=== PATIENT | female | born 1965 | race Caucasian/White ===

== ENCOUNTER 2017-01-28 20:23 | Emergency (ER) | payer BC, MEDICAID ==
[~2017-01-28] VITALS: Ht 162.6 cm; Wt 49.1 kg
[~2017-01-28 20:23] MED LIST: IBUP600T26 PO; PRIL10CA PO
[2017-01-28 20:24] VITALS: BP 128/63; PULSE 76; RESP 18; TEMP 98.3; O2SAT 100
[2017-01-28 20:40] VITALS: BP_SYST 104; BP_SYST 108; BP_SYST 119; BP_DIAS 58; BP_DIAS 73; RESP 18
[2017-01-28 21:50] VITALS: BP 110/62; PULSE 60; RESP 16; O2SAT 100
[2017-01-28] MEDS ORDERED: SODIUM CHLOR 0.9% 1000 ML INJ 1,000 ML IV ONE (21:51)
[2017-01-28] MEDS ORDERED: SODIUM CHLORIDE 0.9% FLUSH 10 ML FLUSH IVF PRN (22:00)
--- NOTE | 2017-01-28 22:31 | RADRPT ---
EXAM DATE/TIME: 01/28/2017 22:10 [place] COMPARISON: No previous studies available for comparison. INDICATIONS : Intermittent dizziness for three months. RADIATION DOSE: 57.16 CTDIvol (mGy) MEDICAL HISTORY : None SURGICAL HISTORY : None. ENCOUNTER: Initial ACUITY: 3 months PAIN SCALE: 0/10 LOCATION: Bilateral cranial TECHNIQUE: Multiple contiguous axial images were obtained of the head. Using automated exposure control and adj ustment of the mA and/or kV according to patient size, radiation dose was kept as low as reasonably a chievable to obtain optimal diagnostic quality images. DICOM format image data is available electro nically for review and comparison. FINDINGS: CEREBRUM: The ventricles are normal for age. No evidence of midline shift, mass lesion, hemorrhage or acute in farction. No extra-axial fluid collections are seen. POSTERIOR FOSSA: The cerebellum and brainstem are intact. The 4th ventricle is midline. The cerebellopontine angle i s unremarkable. EXTRACRANIAL: The visualized portion of the orbits is intact. SKULL: The calvaria is intact. No evidence of skull fracture. CONCLUSION: No acute disease. Jacinto Hardy MD on January 28, 2017 at 22:28 Board Certified Radiologist. This report was verified electronically.
[2017-01-28 22:47] LABS: BASOPHIL # 0.1 TH/MM3 (0-0.2); BASOPHIL % 0.9 % (0.0-2.0); EOSINOPHIL # 0.3 TH/MM3 (0-0.4); EOSINOPHIL % 1.9 % (0.0-4.0); HEMATOCRIT 43.6 % (35.0-46.0); LYMPHOCYTE # 3.1 TH/MM3 (1.0-4.8); MEAN CELL VOLUME 89.9 FL (80.0-100.0); MEAN CORPUSCULAR HEMOGLOBIN 29.2 PG (27.0-34.0); MEAN CORPUSCULAR HGB CONC 32.5 % (32.0-36.0); MONO % 6.2 % (0.0-8.0); PLATELET COUNT 279 TH/MM3 (150-450); RED BLOOD COUNT 4.85 MIL/MM3 (4.00-5.30); RED CELL DISTRIBUTION WIDTH 13.5 % (11.6-17.2); WHITE BLOOD COUNT 13.3 TH/MM3 (4.0-11.0)
[2017-01-28 22:48] LABS: BLOOD, URINE NEG (NEG); GLUCOSE,URINE NEG (NEG); HEMO FLAGS DIFF FINAL; KETONE, URINE NEG (NEG); NITRITE,URINE NEG (NEG)
[2017-01-28 22:58] LABS: CHLORIDE 107 MEQ/L (98-107); POTASSIUM 4.2 MEQ/L (3.5-5.1); SODIUM (NA) 140 MEQ/L (136-145)
[2017-01-28] MEDS ORDERED: RESP: RACEPINEPHRINE 2.25% 0.5 ML NEB NEB ONE (23:00)
[2017-01-28 23:01] LABS: ANION GAP 4 MEQ/L (5-15); MAGNESIUM 2.2 MG/DL (1.5-2.5)
[2017-01-28 23:02] VITALS: BP 105/65; PULSE 62; RESP 17; O2SAT 100
[2017-01-28 23:02] LABS: BLOOD UREA NITROGEN 8 MG/DL (7-18)
--- NOTE | 2017-01-28 23:02 | PD ---
HPI Chief Complaint: Syncope/Near-Syncope Time Seen by Provider: 21:51 Travel History International Travel<30 days: No Contact w/Intl Traveler<30days: No Traveled to known affect area: No History of Present Illness HPI 51-year-old female presents to the emergency department by private transportation for evaluation of 3 months of intermittent dizziness. Patient is unable to identify specific tests episodes of dizziness. Patient reportedly was seen in urgent care the past one to 2 months and prescribed meclizine without symptomatic relief. Patient does not complain of headache did have one episode of brief visual disturbance without recurrence has had no injury or fall and denies near-syncope or syncope. Patient has had no chest pain palpitations shortness of breath sweats nausea vomiting or new upper or lower extremity numbness tingling or weakness or ataxia gait. Patient notes that when she stands for protracted amount of time she starts to become lightheaded. Patient takes no routine medications. Patient does not report any recent long distance travel. Patient has no pleuritic chest pain. No report of lower extremity pain or swelling. No recent antibiotic use. No report of fever or chills. History of environmental or seasonal allergies or recurrent sinusitis. [facility], [facility] Past Medical History Narrative Medical Bipolar disorder anxiety depression GERD and tubal ligation alcohol use marijuana use previous cocaine use; nursing notes. Bipolar Disorder: Yes Anxiety: Yes Depression: Yes Heart Rhythm Problems: No Cardiac Catheterization: No Cardiovascular Problems: No High Cholesterol: No Congestive Heart Failure: No Diabetes: No Diminished Hearing: No GERD: Yes ?: Not LMP: MONTHS Past Surgical History Section: Yes (x3) Coronary Artery Bypass Graft: No Gynecologic Surgery: Yes (TUBAL, 3 C-SECTIONS ) Social History Alcohol Use: Yes (Dinner twice a month, might have two drinks with dinner.) Tobacco Use: No Substance Use: Yes (Alcohol in the past, Cocaine tried a few times, Speed in H/ S; Pot lately.) Allergies-Medications (Allergen,Severity, Reaction): Coded Allergies: Iodine (Verified Allergy, Severe, 'THROAT CLOSES UP', 01/28/17) Penicillin (Verified Allergy, Severe, SOB, 01/28/17) Reported Meds & Prescriptions Reported Meds & Active Scripts Active Reported Ibuprofen 600 Mg Tab 600 Mg PO Q8HPRN Prilosec (Omeprazole) 10 Mg Cap 10 Mg PO DAILY Review of Systems Except as stated in HPI: all other systems reviewed are Neg General / Constitutional: No: Fever, Chills, Weight Gain, Weight Loss Eyes: No: Diploplia, Blurred Vision, Photophobia HENT: Positive: Vertigo, Lightheadedness, No: Headaches, Congestion, Neck Stiffness, Neck Pain Cardiovascular: No: Chest Pain or Discomfort, Palpitations, Diaphoresis, Syncope, Dyspnea on exertion, Edema Respiratory: No: Cough, Shortness of Breath, Wheezing Gastrointestinal: No: Nausea, Vomiting, Abdominal Pain Genitourinary: No: Dysuria, Flank Pain Musculoskeletal: No: Myalgias, Arthralgias, Cramping, Edema Skin: No Rash Neurologic: Positive: Dizziness, No: Weakness, Syncope, Focal Abnormalities, Coordination Problem, Ataxia, Headache, Change in Mentation, Slurred Speech, Paresthesia, Seizures Psychiatric: No: Anxiety Endocrine: No: Heat Intolerance Hematologic/Lymphatic: No: Easy Bruising Physical Exam Narrative GENERAL: Well-developed well-nourished female in no acute distress no respiratory distress SKIN: Warm and dry. HEAD: Atraumatic. Normocephalic. EYES: Pupils equal and round. No scleral icterus. No injection or drainage. ENT: No nasal bleeding or discharge. Mucous membranes pink and moist. Tympanic membranes no redness no dullness or loss of landmarks no hemotympanum or perforation. NECK: Trachea midline. No JVD. Supple no nuchal rigidity no meningismus. CARDIOVASCULAR: Regular rate and rhythm. RESPIRATORY: No accessory muscle use. Clear to auscultation. Breath sounds equal bilaterally. GASTROINTESTINAL: Abdomen soft, non-tender, nondistended. Hepatic and splenic margins not palpable. MUSCULOSKELETAL: Extremities without clubbing, cyanosis, or edema. No obvious deformities. NEUROLOGICAL: Awake and alert. No obvious cranial nerve deficits. Motor grossly within normal limits. Five out of 5 muscle strength in the arms and legs. Sensory exam intact. DTRs 2+ and equal bilateral upper extremity or lower extremities without clonus. No limb ataxia. No pronator drift. Normal speech. PSYCHIATRIC: Appropriate mood and affect; insight and judgment normal. Data Data Last Documented VS Vital Signs Date Time Temp Pulse Resp B/P Pulse Ox O2 Delivery O2 Flow Rate FiO2 01/29/17 00:05 98.0 58 17 106/60 99 Room Air Orders Electrocardiogram (01/28/17 21:51) Complete Blood Count With Diff (01/28/17 21:51) Comprehensive Metabolic Panel (01/28/17 21:51) Magnesium (Mg) (01/28/17 21:51) Ckmb (Isoenzyme) Profile (01/28/17 21:51) Troponin I (01/28/17 21:51) Act Partial Throm Time (Ptt) (01/28/17 21:51) Prothrombin Time / Inr (Pt) (01/28/17 21:51) Urinalysis - C+S If Indicated (01/28/17 21:51) Ct Brain W/O Iv Contrast(Rout) (01/28/17 21:51) Ecg Monitoring (01/28/17 21:51) Iv Access Insert/Monitor (01/28/17:51) Oximetry (01/28/17 21:51) Sodium Chloride 0.9% Flush (Ns Flush) (01/28/17 22:00) Sodium Chlor 0.9% 1000 Ml Inj (Ns 1000 M (01/28/17 21:51) Orthostatic Vital Signs (01/28/17 21:51) Racemic Epinephrine 2.25% Neb (Racepinep (01/28/17 23:00) Labs Laboratory Tests Test 01/28/17 22:13 White Blood Count 13.3 TH/MM3 Red Blood Count 4.85 MIL/MM3 Hemoglobin 14.2 GM/DL Hematocrit 43.6 % Mean Corpuscular Volume 89.9 FL Mean Corpuscular Hemoglobin 29.2 PG Mean Corpuscular Hemoglobin 32.5 % Concent Red Cell Distribution Width 13.5 % Platelet Count 279 TH/MM3 Mean Platelet Volume 10.0 FL Neutrophils (%) (Auto) 68.0 % Lymphocytes (%) (Auto) 23.0 % Monocytes (%) (Auto) 6.2 % Eosinophils (%) (Auto) 1.9 % Basophils (%) (Auto) 0.9 % Neutrophils # (Auto) 9.0 TH/MM3 Lymphocytes # (Auto) 3.1 TH/MM3 Monocytes # (Auto) 0.8 TH/MM3 Eosinophils # (Auto) 0.3 TH/MM3 Basophils # (Auto) 0.1 TH/MM3 CBC Comment DIFF FINAL Differential Comment Prothrombin Time 10.6 SEC Prothromb Time International 1.0 RATIO Ratio Activated Partial 27.4 SEC Thromboplast Time Urine Color YELLOW Urine Turbidity CLEAR Urine pH 6.0 Urine Specific [place] 1.018 Urine Protein NEG mg/dL Urine Glucose (UA) NEG mg/dL Urine Ketones NEG mg/dL Urine Occult Blood NEG Urine Nitrite NEG Urine Bilirubin NEG Urine Leukocyte Esterase NEG Urine WBC 0-2 /hpf Urine Squamous Epithelial 0-5 /hpf Cells Urine Mucus FEW /lpf Microscopic Urinalysis Comment CULT NOT INDICATED Sodium Level 140 MEQ/L Potassium Level 4.2 MEQ/L Chloride Level 107 MEQ/L Carbon Dioxide Level 29.0 MEQ/L Anion Gap 4 MEQ/L Blood Urea Nitrogen 8 MG/DL Creatinine 0.65 MG/DL Estimat Glomerular Filtration 96 ML/MIN Rate Random Glucose 78 MG/DL Calcium Level 9.0 MG/DL Magnesium Level 2.2 MG/DL Total Bilirubin 0.3 MG/DL Aspartate Amino Transf 26 U/L (AST/SGOT) Alanine Aminotransferase 30 U/L (ALT/SGPT) Alkaline Phosphatase 101 U/L Total Creatine Kinase 65 U/L Troponin I LESS THAN 0.02 NG/ML Total Protein 7.6 GM/DL Albumin 3.5 GM/DL MDM Medical Decision Making Medical Screen Exam Complete: Yes Emergency Medical Condition: Yes Medical Record Reviewed: Yes Interpretation(s) Last Impressions Head CT 01/28/172150 Signed Impressions: Service Date/Time: Saturday, January 28, 2017 22:10 - CONCLUSION: No acute disease. Jacinto Hardy MD CBC & BMP Diagram 01/28/17 22:13 EKG: Sinus rhythm rate [address] elevation or injury pattern change noted nonspecific T-wave inversion noted septally Vital Signs Date Time Temp Pulse Resp B/P Pulse Ox O2 Delivery O2 Flow Rate FiO2 01/29/17 00:05 98.0 58 17 106/60 99 Room Air 01/28/17 23:02 62 17 105/65 100 Room Air 01/28/17 21:50 60 16 110/62 100 Room Air 01/28/17 20:40 66 18 104/58 66 18 108/73 66 18 119/73 01/28/17 20:24 98.3 76 18 128/63 100 Differential Diagnosis Dizziness, vertigo, labyrinthitis, viral syndrome, mass, arrhythmia, electrolyte disturbance, anemia, GI bleed, thyroid dysfunction, CVA, vasovagal near syncope, orthostatic hypotension, adverse medication reaction, alcohol ingestion, substance ingestion Narrative Course Patient placed on youth nutritional monitor IV access obtained EKG performed which reveals no acute injury pattern change CT brain noncontrast ordered Laboratory values resulted and found to be grossly within normal limits; imaging study no acute abnormality Patient informed of imaging results and CT findings encouraged to follow-up with primary care provider as may require outpatient Holter and further evaluation as to possible cause of dizziness. Patient already has had trial of meclizine without symptomatically relief. No prescriptions provided. Diagnosis Primary Impression: Dizziness Referrals: Primary Care Physician 1 day Patient Instructions: General Instructions Departure Forms: Tests/Procedures, Work Release Special Instructions: no work x 2 days Med/Other Pt SpecificInfo: No Change to Meds Disposition: 01 DISCHARGE HOME Condition: Stable Elza Fernandes MD Jan 28, 2017 23:02
[2017-01-28 23:05] LABS: ALT (GPT) 30 U/L (10-53); APTT (PATIENT) 27.4 SEC (24.3-30.1); AST (GOT) 26 U/L (15-37); GLOMERULAR FILTRATION RATE 96 ML/MIN (>89); PROTHROMBIN TIME - PATIENT 10.6 SEC (9.8-11.6)
[2017-01-28 23:06] LABS: TOTAL BILIRUBIN ADULT 0.3 MG/DL (0.2-1.0)
[2017-01-28 23:07] LABS: ALKALINE PHOSPHATASE 101 U/L (45-117)
[2017-01-28 23:18] LABS: URINE COLOR YELLOW (YELLW/STRAW)
[2017-01-28 23:19] LABS: MUCUS URINE FEW /lpf (OCC); SQUAMOUS EPITHELIAL CELL URINE 0-5 /hpf (0-5)
[2017-01-28 23:20] LABS: COMMENT (UR) CULT NOT INDICATED; CULTURE IF INDICATED CULT NOT INDICATED; WBC, URINE 0-2 /hpf (0-5)
[2017-01-28 23:33] LABS: CREATINE KINASE 65 U/L (26-192)
[2017-01-29 00:05] VITALS: BP 106/60; PULSE 58; RESP 17; TEMP 98; O2SAT 99
--- NOTE | 2017-01-29 06:59 | EKG ---
Date Performed: 01/28/2017 Time Performed: 22:12:27 PTAGE: 51 years EKG: SINUS BRADYCARDIA BORDERLINE ECG PREVIOUS TRACING : 01/28/2013 22.28 No significant change from previous tracing noted. DOCTOR: Chet Cole Interpretating Date/Time 01/29/2017 06:57:44
== END 2017-01-29 00:49 | disposition home or self-care (01) ==
LOC: PHED 20:23
DX: R42 Dizziness and giddiness (principal); R00.1 Bradycardia, unspecified; Z86.59 Personal history of other mental and behavioral disorders; Z87.19 Personal history of other diseases of the digestive system
CPT/HCPCS: 70450; 80053; 81001; 82550; 83735; 84484; 85025; 85610; 85730; 93005; 96360; 99285; J7030